=== PATIENT | female | born 1990 | race Two or more races ===

== ENCOUNTER 2017-09-17 14:49 | Observation (INO) | payer MEDICAID, OTHER ==
[~2017-09-17] VITALS: Ht 147.3 cm; Wt 57.6 kg
[2017-09-17 15:47] LABS: Hemoglobin 11.4 g/dL (12.2-16.2); Monocytes # (auto) 0.6 uL; White Blood Cell 7.7 10^3/uL (4.4-10.8)
[2017-09-17 15:49] LABS: Basophils # (auto) 0 uL; Basophils % (auto) 0.4 % (0.0-2.0); Eosinophils # (auto) 0.1 uL; Eosinophils % (auto) 0.8 % (0.0-7.0); Hematocrit 35.9 % (36.0-46.0); Lymphocytes # (auto) 2.3 uL; Lymphocytes % (auto) 30.3 % (10.0-50.0); Mean Corpuscular Hemoglobin 25.4 pg (28.0-32.0); Mean Corpuscular Hgb Conc. 31.7 g/dL (32.0-36.0); Mean Corpuscular Volume 80.1 fL (80.0-100.0); Monocytes % (auto) 7.6 % (0.0-12.0); Neutrophils # (auto) 4.7 uL; Neutrophils % (auto) 60.9 % (37.0-80.0); Nucleated Red Blood Cells % 0.2 %; Platelet Count (auto) 256 10^3/uL (140-450); Red Cell Distribution Width 16.5 % (11.8-14.3)
[2017-09-17 15:52] LABS: Calcium 8.8 mg/dL (8.5-10.1); Potassium 4.1 mmol/L (3.5-5.1)
[2017-09-17 15:54] LABS: BUN/Creatinine Ratio 16.4
[2017-09-17 15:57] LABS: Bilirubin, Total 0.3 mg/dL (0.2-1.0); Total Protein 7.7 g/dL (6.4-8.2)
[2017-09-17 16:16] LABS: Urine RBC None Seen /hpf (0 - 4)
[2017-09-17 16:35] LABS: Urine Bilirubin Negative (Negative); Urine Blood Negative /uL (Negative); Urine Glucose Normal (Normal); Urine Ketone Negative (Negative); Urine Nitrite Negative (Negative); Urine Squamous Epithelial Cell FEW /hpf (<5); Urine Urobilinogen Normal (Negative)
[2017-09-17 16:36] LABS: Urine Color Straw (Yellow)
[2017-09-17] MEDS ORDERED: SODIUM CHLORIDE 0.9% 1,000 ML IVB ONE (20:42)
[2017-09-17] MEDS ORDERED: KETOROLAC TROMETH 30 MG/ML 1ML VIAL IV ONE (20:45)
[2017-09-17 21:45] LABS: INR 1.05 (0.9-1.15); Partial Thromboplastin Time 27.1 sec (22.64-33.71); Prothrombin Time 11.4 sec (9.37-12.3)
[2017-09-18] VITALS: BP 125/72
== END 2017-09-18 01:00 | disposition home or self-care (01) | DRG 251 ==
LOC: ER 14:49 → OVERFLOW 20:59 → ER 09-18 01:00
PROVIDERS: ADMIT Family Medicine; ATTEND Family Medicine
DX: R10.12 Left upper quadrant pain (principal); R11.0 Nausea
CPT/HCPCS: 36415; 71010; 74176; 80053; 81001; 83735; 84702; 85025; 85610; 85730; 96361; 96374; 99285; G0378; J1885; J7030